=== PATIENT | female | born 1955 | race Caucasian/White ===

== ENCOUNTER 2020-12-26 14:43 | Emergency (ER) | payer BC ==
[~2020-12-26] VITALS: Ht 172.7 cm; Wt 81.6 kg
[2020-12-26 14:58] VITALS: BP 141/91
[2020-12-26 15:04] VITALS: BP 141/91
--- NOTE | 2020-12-26 15:52 | ER.PDOC ---
General Chief Complaint: Requesting Medical Care Stated Complaint: FALL, L HAND/WRIST INJURY Time seen by MD: 15:44 Source: patient Exam Limitations: no limitations History of Present Illness Occurred: just prior to arrival Where: home Severity: mild Context: fall Location of Injury: (L) wrist Modifying Factors: pain on movement Past Medical History Medical History: no pertinent history Surgical History: no surgical history LMP (females 10-50): postmenopause Social History Alcohol Use: none Drug Use: none Reviewed Nursing Reviewed: Vital Signs, Abn. Noted Review of Systems All Other Systems: Reviewed and Negative Physical Exam General Appearance: Alert, No Apparent Distress Hand: nml inspection, non-tender, no evidence FB Wrist: see diagram, tenderness 1 - TENDER Neuro: sensation nml, motor nml Vascular: no vascular compromise Tendons: tendon function nml Forearm/Elbow/Arm: uninjured above wrist Skin: warm/dry Head/ENT: nml inspection, pharynx nml Neck/Back: nml inspection, non-tender Resp/CVS: no resp distress, lungs clear, heart sounds nml, reg. rate & rhythm Abdomen: non-tender, no organomegaly Splinting Splinting : Hand-Made Type: fiberglass Results/Orders Results/Orders Orders - ROSEY ESQUIVEL MD Xr Wrist Lt (12/26/20 14:55) Vital Signs Date Time Temp Pulse Resp B/P (MAP) Pulse Ox O2 Delivery O2 Flow Rate FiO2 12/26/20 15:04 97.9 79 18 141/91 (108) 97 Room Air 12/26/20 14:58 97.9 79 18 97 12/26/20 14:58 97.9 79 18 ER DEPART Departure Time of Disposition: 15:55 Disposition: 01 HOME / SELF CARE / HOMELESS Impression: Primary Impression: Contusion of wrist, left Condition: Improved Referrals: PCP,UNKNOWN (PCP) PRIMARY CARE PROVIDER Duration or Time Spent with Pa: Melody M ROSEY ESQUIVEL MD December 26, 2020 15:52
--- NOTE | 2020-12-26 16:00 | DIREP ---
PROCEDURE:XRAY WRIST MIN 3VW-LT COMPARISON:None. INDICATIONS:FALL, LEFT WRIST PAIN FINDINGS:AP, lateral, and oblique view. BONES:Normal. JOINTS:Normal. SOFT TISSUES:Normal. OTHER:No additional findings. CONCLUSION:No acute visible fracture. See above description. Dictated by: Jose Oliva MD on 12/26/2020 at 03:54 PM
[2020-12-26 16:13] VITALS: BP 143/85
== END 2020-12-26 16:02 | disposition home or self-care (01) ==
LOC: ER 14:43
DX: S60.212A Contusion of left wrist, initial encounter (principal); W19.XXXA Unspecified fall, initial encounter; Y93.89 Activity, other specified; Y92.89 Other specified places as the place of occurrence of the external cause; Y99.8 Other external cause status
CPT/HCPCS: 29125; 99283; 73110-LT